=== PATIENT | male | born 1985 | race American Indian/Alaskan Native ===

== ENCOUNTER 2019-09-15 21:07 | Emergency (ER) | payer OTHER ==
[~2019-09-15] VITALS: Ht 175.3 cm; Wt 86.2 kg
== END 2019-09-15 22:11 | disposition home or self-care (01) ==
LOC: ED 21:07
DX: S61.411A Laceration without foreign body of right hand, initial encounter (principal); F17.200 Nicotine dependence, unspecified, uncomplicated; X58.XXXA Exposure to other specified factors, initial encounter
CPT/HCPCS: 12002; 90471; 90715; 99282-25